=== PATIENT | female | born 1940 | race Caucasian/White ===

== ENCOUNTER 2016-07-14 15:44 | Emergency (ER) | payer MEDICARE, BC ==
[2016-04-06 12:45] VITALS: BMI 29.7
[~2016-07-14 15:44] MED LIST: ATELVIA35 MG PO; CARAFATE1 G PO; CENTRUM COMPLE1 EACH PO; GABAPENTIN100 MG PO; LIBRAX CAPSULE1 CAP PO; LIPITOR20 MG PO; NORCO 7.5/325 T1 TA1 PO; PRILOSEC20 MG PO; SYNTHROID100 MCG PO; TIMOPTIC 0.5 % O5 ML EACH EYE; TRICOR145 MG PO; VITAMIN D50000 UNIT PO; ZIAC 5-6.25 MG1 TAB PO; ZOLOFT50 MG PO
[2016-07-14 17:16] LABS: APPEARANCE CLEAR (CLEAR); BILIRUBIN NEGATIVE (NEGATIVE); COLOR YELLOW (YELLOW); GLUCOSE NEGATIVE (NEGATIVE); KETONE NEGATIVE (NEGATIVE); LEUKOCYTE ESTERASE 2+ (NEGATIVE); NITRITE NEGATIVE (NEGATIVE); PROTEIN NEGATIVE (NEGATIVE); SPECIFIC GRAVITY 1.015 (1.005-1.020); UROBILINOGEN NORMAL (NORMAL)
[2016-07-14 17:18] LABS: BACTERIA FEW /hpf (NONE SEEN); EPITHELIAL CELLS 0-5 /hpf (0-5); MUCUS <1+ /lpf (NONE SEEN)
== END 2016-07-14 17:48 | disposition home or self-care (01) ==
LOC: D.ER 15:44
PROVIDERS: Nurse Practitioner Acute Care
DX: N39.0 Urinary tract infection, site not specified (principal); E78.5 Hyperlipidemia, unspecified; I10 Essential (primary) hypertension; E03.9 Hypothyroidism, unspecified

== ENCOUNTER 2016-09-08 12:18 | Emergency (ER) | payer MEDICARE, BC ==
[2016-04-06 12:45] VITALS: BMI 29.7
[2016-09-08 13:08] LABS: APPEARANCE CLEAR (CLEAR); COLOR YELLOW (YELLOW)
[2016-09-08 13:09] LABS: BACTERIA FEW /hpf (NONE SEEN); BILIRUBIN NEGATIVE (NEGATIVE); EPITHELIAL CELLS 0-5 /hpf (0-5); GLUCOSE NEGATIVE (NEGATIVE); KETONE NEGATIVE (NEGATIVE); LEUKOCYTE ESTERASE 1+ (NEGATIVE); NITRITE NEGATIVE (NEGATIVE); PROTEIN NEGATIVE (NEGATIVE); RED CELLS - URINE 0-5 /hpf (0-5); SPECIFIC GRAVITY 1.015 (1.005-1.020); UROBILINOGEN NORMAL (NORMAL)
== END 2016-09-08 14:37 | disposition home or self-care (01) ==
LOC: D.ER 12:18
PROVIDERS: Emergency Medicine
DX: M54.5 Low back pain (principal); E78.5 Hyperlipidemia, unspecified; F17.200 Nicotine dependence, unspecified, uncomplicated

== ENCOUNTER 2016-11-06 12:26 | Inpatient (IN) | payer MEDICARE, BC ==
[2016-11-06 15:21] LABS: BASOPHILS 0.3 % (0-2); EOSINOPHILS 1.7 % (0-7); HEMATOCRIT 46.6 % (36.0-48.0); IMMATURE GRANULOCYTES 0.3 % (0-5); LYMPHOCYTES 26.7 % (15-50); MCH 30.5 pg (26.0-34.0); MCHC 32.2 g/dL (31.0-37.0); MCV 94.9 fL (80.0-100.0); MEAN PLATELET VOLUME 11.6 fL (7.4-10.4); MONOCYTES 6.2 % (2-11); NEUTROPHILS 64.8 % (40-80); PLATELET COUNT 183 10x3/uL (130-400); RBC 4.91 10x6/uL (4.00-5.40); RDW 15.7 % (11.5-14.5); WBC 7.1 10x3/uL (4.8-10.8)
[2016-11-06 15:27] LABS: APPEARANCE CLEAR (CLEAR); BILIRUBIN NEGATIVE (NEGATIVE); COLOR YELLOW (YELLOW); GLUCOSE NEGATIVE (NEGATIVE); KETONE NEGATIVE (NEGATIVE); LEUKOCYTE ESTERASE 1+ (NEGATIVE); NITRITE NEGATIVE (NEGATIVE); PROTEIN TRACE mg/dL (NEGATIVE); SPECIFIC GRAVITY 1.015 (1.005-1.020); UROBILINOGEN NORMAL (NORMAL)
[2016-11-06 15:35] LABS: BACTERIA NONE SEEN /hpf (NONE SEEN); EPITHELIAL CELLS 0-5 /hpf (0-5); RED CELLS - URINE 0-5 /hpf (0-5); WHITE CELLS - URINE 0-5 /hpf (0-5)
[2016-11-06 15:42] LABS: UDS - AMPHET NEGATIVE QUAL (NEGATIVE); UDS - BARB NEGATIVE QUAL (NEGATIVE); UDS - BENZO POSITIVE QUAL (NEGATIVE); UDS - COCAINE NEGATIVE QUAL (NEGATIVE); UDS - METH NEGATIVE QUAL (NEGATIVE); UDS - OPIATE POSITIVE QUAL (NEGATIVE); UDS - PCP NEGATIVE QUAL (NEGATIVE); UDS - THC NEGATIVE QUAL (NEGATIVE)
[2016-11-06 16:51] LABS: ALBUMIN 3.3 g/dL (3.4-5.0); ANION GAP 13.1 mmol/L (8-16); CALCIUM 9.7 mg/dL (8.5-10.1); CARBON DIOXIDE 28.5 mmol/L (21.0-32.0); CREATININE - SERUM 0.9 mg/dL (0.6-1.3); POTASSIUM - SERUM 3.6 mmol/L (3.5-5.1)
[2016-11-06 17:10] LABS: BILIRUBIN - TOTAL 0.91 mg/dL (0.2-1.3); PROTEIN - SERUM 7.4 g/dL (6.4-8.2)
[2016-11-06] MEDS ORDERED: VALIUM5 MG PO (18:43)
[2016-11-06 19:28] LABS: HEMOGLOBIN A1C 5.5 % (4.8-6.0)
[2016-11-06 19:30] VITALS: BP 154/88
[2016-11-06 19:37] LABS: CHOL - HDL RATIO 3.8 ratio (2.3-4.1); LDL-HDL RATIO 1.7 ratio (1.5-3.5); THYROID STIMULATING HORMONE 0.11 uIU/mL (0.36-3.74)
[2016-11-06 19:57] VITALS: BP 154/88
[2016-11-06 20:53] VITALS: BP 154/72
--- NOTE | 2016-11-06 22:58 | NUR ---
RECEIVED IN BEDROOM. ALERT ANDF ORIENTED. CALM AND COOPERATIVE WITH CARE AND ASSESSMENT. DENIES THOUGHT OF SELF HARM AT THIS TIME. STATES SHE WAS JUST UPSET AND IF HER FAMILY WOULD HAVE LEFT HER ALONE SHE WOULD HAVE BEEN FINE. ENCOURAGE TO EXPRESS NEEDS. RESTING EYES CLOSED. CONTINUE PLAN OF CARE
--- NOTE | 2016-11-07 07:12 | NUR ---
Recieved patient from ER via w/c accompanied by staff and family, patient had been crying. Patient was oriented X3, but denied S.I. According to family patient had threatened to shoot herself and locked herself in her room. The police were called and patient had threatened to shoot police. Patient denies this, saying she just wanted to be alone. However, nurse overheard patient admit to her son that she wanted to shoot herself. Patient is a DNR. Has had multiple surgeries in past, wears a brief and walks with cane assist. Patient has been given walker. She has special prescribed shoes that she has to wear at all times, due to previous heal injury. Patient was oriented to room and unit. Bed low, jennings within reach, rails up X2
--- NOTE | 2016-11-07 11:15 | NUR ---
Patient in room. She is calm and compliant and assists with self hygiene. Patient was trying to make her self throw up by sticking her fingers down her throat when nurse walked into the room. She denied this. Patient is denying suicidal ideation. She said it is against "God's plan" to commit suicide. Verbal contract made with nurse that she will not self harm. Patient is talkative with staff and fixated with her health and previous surgeries. Patient reoriented to current circumstances. Continue to monitor, continue plan of care.
--- NOTE | 2016-11-07 20:15 | NUR ---
RECEIVED IN HALLWAY OUTSIDE OF NURSES STATION. CALM AND COOPERATIVE WITH CARE AND ASESSMENTS. DENIES THOUGHTS OF SELF HARM. ENCOURAGE TO EXPRESS NEEDS AND FEELINGS. RESTING IN BED WITH EYES CLOSED AT THIS TIME. CONTINUE PLAN OF CARE
[2016-11-07 23:31] VITALS: BP 138/85
[2016-11-08 07:25] LABS: RAPID PLASMA REAGIN Non Reactive (Non Reactive)
--- NOTE | 2016-11-08 10:07 | NUR ---
Patient's glacoma eye drops has a conflict with allergy medication pharmacy called, talked with Francisca, was told if she takes the same drops at home, which she does according to patient, then she may continue to use them. will monitor for reaction
[2016-11-08 10:14] VITALS: BP 142/88
--- NOTE | 2016-11-08 10:43 | PSY ---
PATIENT NAME:TAY BUSTOS MEDICAL RECORD: [id number] : 44 LOCATION:[facility] ADMISSION DATE: 11/06/16 ACCOUNT: [id number] PSYCHIATRIC EVALUATION DATE OF EVALUATION: 11/07/16 Initial Psychiatric Workup IDENTIFYING DATA: This is the first Prison admission for this 76-year-old white female. HISTORY OF PRESENT ILLNESS: This patient was brought in by her family yesterday afternoon. The patient had been making suicidal threats. She had been threatening to shoot herself. Law enforcement was called to the scene. The patient threatened to assault law enforcement as well. She was brought to the Emergency Room and initially admitted on an involuntary basis, but the patient later agreed to sign in on a voluntary basis. The patient has a past history of major depressive disorder. She lives at home with her who has Parkinson disease and their 38-year-old son who provides caregiving. The patient has in the past been treated with Zoloft 150 mg daily, but the patient states that she took herself off this medicine because she thought that she was doing well. The patient has numerous medical problems and has a very strong somatic focus. She provides relatively little insight into her ongoing depression during the course of the interview. There is no evidence of psychosis. The patient has made very strong suicidal statements; although at the present time, she states that she would not carry through on it. PAST MEDICAL HISTORY: Significant for hypertension, hypothyroidism, diverticular disease, hyperlipidemia, GERD, vitamin D deficiency, chronic back pain, history of compression fracture of the lumbar spine, and also osteoporosis. MEDICATIONS: At the time of admission included Lipitor, Ziac, folic acid, TriCor, Neurontin, hydrocodone, levothyroxine, Prilosec, Carafate, vitamin D and Valium. ALLERGIES: THE PATIENT HAS NUMEROUS LISTED ALLERGIES INCLUDING CORTICOSTEROID, SULFONAMIDE ANTIBIOTICS, DIAMOX, FOSAMAX, AMOXICILLIN, CLAVULANIC ACID, DICLOFENAC, METHYLPREDNISOLONE, SULINDAC AND TIMOLOL. FAMILY HISTORY: Positive for a brother who is currently in penitentiary. He has a history of dementia. SOCIAL HISTORY: The patient is . She denies alcohol or drug use. She is a nonsmoker. She has 2 sons. REVIEW OF SYSTEMS: Noncontributory. MENTAL STATUS: On exam, the patient is extremely garrulous. She gives a long, rambling and concluded history focusing primarily on somatic problems. The patient tends to minimize the severity of her depression in spite of her suicidal statements. Mood is anxious. Affect is histrionic. Content of thought is noted for suicidal ideation in extreme somatic focus. No evidence of psychosis. Sensorium testing reveals the patient is oriented to person, place, month, and year. Remote, intermediate and short-term recall are relatively intact. DIAGNOSTIC IMPRESSION: AXIS I: Major depressive disorder -- recurrent with suicidal ideation. AXIS II: Cluster B personality traits. AXIS III: Hypertension, hypothyroidism, diverticular disease, hyperlipidemia, gastroesophageal reflux disease, vitamin D deficiency, chronic low back pain, history of compression fracture of the lumbar spine and osteoporosis. AXIS IV: Moderate. AXIS V: 36. PLAN: 1. The patient is admitted for medication revision as indicated. 2. Diet and activities as tolerated. 3. Daily supportive therapy. 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
[2016-11-08 11:16] LABS: VITAMIN D 25 HYDROXY 58.7 ng/mL (30.0-100.0)
[2016-11-08 12:16] LABS: APPEARANCE HAZY (CLEAR); BILIRUBIN NEGATIVE (NEGATIVE); COLOR DK YELLOW (YELLOW); GLUCOSE NEGATIVE (NEGATIVE); KETONE NEGATIVE (NEGATIVE); LEUKOCYTE ESTERASE 2+ (NEGATIVE); NITRITE NEGATIVE (NEGATIVE); PROTEIN NEGATIVE (NEGATIVE); SPECIFIC GRAVITY 1.015 (1.005-1.020); UROBILINOGEN NORMAL (NORMAL); WHITE CELLS - URINE 25-50 /hpf (0-5)
[2016-11-08 12:17] LABS: BACTERIA MODERATE /hpf (NONE SEEN); MUCUS <1+ /lpf (NONE SEEN); RED CELLS - URINE 0-5 /hpf (0-5)
--- NOTE | 2016-11-08 12:33 | NUR ---
Patient in dayroom and has spent most of the day socializing with peers. She has been calm and compliant with medication. Patient is pleasant however hyperverbal about personal ailments. She has been encouraged to express her needs. Patient denies suicidal ideation and still saying she just needed to be alone. Patient is orientated x4. Continue to monitor, continue plan of care.
[2016-11-08 19:29] VITALS: BP 124/75
--- NOTE | 2016-11-08 21:30 | NUR ---
RECEIVED IN BEDROOM. RESTING IN BED WITH EYES CLOSED. RESPONDS TO VOICE. CALM AND COOPERATIVE WITH CARE AND ASSESSMENTS. DENIES THOUGHTS OF SELF HARM. RESTING IN BED EYES CLOSED AT THIS TIME. CONTINUE PLAN OF CARE
[2016-11-09 08:30] VITALS: BP 118/68
--- NOTE | 2016-11-09 09:47 | PN ---
PATIENT:TAY BUSTOS MEDICAL RECORD: [id number] LOCATION:[facility] ADMISSION DATE: 11/06/16 PROGRESS NOTE DATE OF SERVICE: 11/08/2016 SUBJECTIVE: No new complaint. OBJECTIVE: The patient has been fairly cooperative over the last 24 hours. She is tolerating medications. She continues to show great deal focus on somatic concerns. On exam, mood is for the most part euthymic. Affect is shallow. Speech is garrulous. Content of thought focuses on somatic concerns. Sensorium shows no change. ASSESSMENT: No change in diagnosis. PLAN: 1. Continue current medications. 2. Continue supportive therapy. TRANSINT:[id number] Voice Confirmation ID: [id number] DOCUMENT ID: [id number] APRIL PETTY III, MD at 0947 CC: [id number] DICTATION DATE: 11/08/16 1208 2ND GRADE TEACHER: 11/08/16 2230 ADM IN [place] [id number] [place] [id number]
--- NOTE | 2016-11-09 10:00 | NUR ---
B) Received pt in dining room, alert, quiet mood, denies pain, no aggression or suicidal comments noted. I) Meds admin per orders, group therapy provided. R) Med compliant with no s/s adverse reaction noted, present for group activity. P) Cont plan of care including meds and group therapy.
[2016-11-09 20:16] VITALS: BP 109/74
--- NOTE | 2016-11-10 00:52 | NUR ---
B) recieved sitting in the day room alert and oriented to self and being in hospital, calm and cooperative, I) Administered perscribed medications, monitored for safety, R) Medication compliant, pleasant and friendly P) Continue plan of care.
--- NOTE | 2016-11-10 10:35 | PN ---
PATIENT:TAY BUSTOS MEDICAL RECORD: [id number] LOCATION:[facility] ADMISSION DATE: 11/06/16 PROGRESS NOTE DATE OF SERVICE: 11/09/2016 SUBJECTIVE: No new complaint. OBJECTIVE: The patient is overall better. She is tolerating medication without difficulty. On exam, mood is euthymic, affect is pleasant. Speech is fluent. Content of thought is negative for psychosis or suicidality. Sensorium is clear. ASSESSMENT: No change in diagnosis. PLAN: 1. Maintain current medications. 2. Continue supportive therapy. TRANSINT:[id number] Voice Confirmation ID: [id number] DOCUMENT ID: [id number] APRIL PETTY III, MD at 1035 CC: [id number] DICTATION DATE: 11/09/16 1051 MERCHANDISE COLLECTOR: 11/09/162048 ADM IN [facility] [address] [place] [address]
[2016-11-10 11:00] VITALS: BP 161/91
[2016-11-10] MEDS ORDERED: LEXAPRO10 MG PO (12:08)
[2016-11-10] MEDS ORDERED: SYNTHROID75 MCG PO (12:09)
[2016-11-10] MEDS ORDERED: SENOKOT-S TABLE1 TAB PO (12:09)
--- NOTE | 2016-11-10 20:00 | NUR ---
RECEIVED IN DAYROOM SITTING IN CHAIR. ALERT AND PLEASANT MOOD. CALM AND COOPERATIVE WITH CARE AND ASSESSMENT. REDIRECT AND REORIENT NEEDED. SEE ASSESSMENT FLOW SHEET. CONTINUE PLAN OF CARE.
[2016-11-10 21:12] VITALS: BP 125/71
--- NOTE | 2016-11-11 02:50 | NUR ---
TYLENOL 650 MG PO GIVEN FOR BACK AND RIGHT ARM PAIN.
--- NOTE | 2016-11-11 08:46 | NUR ---
FAXED D/C ORDER TO DR. KEBEDE AND KONSTANTIN, CALLED [facility]. PATIENT SIGNED D/C PAPERWORK. WILL CONTINUE TO WORK ON D/C.
[2016-11-11 09:35] VITALS: BP 104/68
--- NOTE | 2016-11-11 13:04 | NUR ---
PATIENT'S FAMILY HERE TO TAKE HER HOME. PATIENT CHANGING INTO HER OWN CLOTHES.
--- NOTE | 2016-11-11 13:23 | NUR ---
PATIENT D/C'D FROM [facility], ASSISTED TO THE CAR WITH FAMILY. PROVIDED PATIENT THE APPT WITH HER MD AND GAVE HER MED LIST.
--- NOTE | 2016-11-12 10:07 | NUR ---
LATE ENTRY FROM 11/09. PT'S SON, MARGARETTE, PARTICIPATED IN EDUCATIONAL GROUP. SW DISCUSSED DISCHARGE PLANS AND REFERRED PT TO OUTPATIENT COUNSELING AT [facility] AND [facility]. PT AND SON VERBALIZED UNDERSTANDING OF DISCHARGE PLANS AND LEVEL OF CARE THAT NEEDS TO BE CONTINUED.
--- NOTE | 2016-11-14 09:54 | PN ---
PATIENT:TAY BUSTOS MEDICAL RECORD: [id number] LOCATION:[facility] ADMISSION DATE: 11/06/16 PROGRESS NOTE DATE OF SERVICE: 11/11/2016 SUBJECTIVE: The patient's case was discussed with staff. She has no new complaint. OBJECTIVE: The patient is in good behavioral control with limited insight about her condition. She tolerates her medicines well. ASSESSMENT: No change in diagnoses. PLAN: The patient is not acutely dangerous. She is scheduled for discharge today and I do not see any reason why that could not or should not occur. Followup will be with her primary care physician. I do not see the patient as acutely dangerous at this moment. TRANSINT:[id number] Voice Confirmation ID: [id number] DOCUMENT ID: [id number] PAUL MORALES MD at 0954 CC: [id number] DICTATION DATE: 11/11/16 1254 SUPERVISOR BLOOMING MILL: 11/12/16 0044 DIS IN 11/11/16 [facility] [address] [place] [address]
--- NOTE | 2016-11-14 09:57 | PN ---
PATIENT:TAY BUSTOS MEDICAL RECORD: [id number] LOCATION:[facility] ADMISSION DATE: 11/06/16 PROGRESS NOTE DATE OF SERVICE: 11/10/2016 SUBJECTIVE: No new complaint. OBJECTIVE: The patient has shown good tolerance of medication. No further suicidal statements have been made. Discharge plans were discussed with the patient including the need for followup through [facility] in [place]. On exam, mood more or less euthymic. Affect somewhat histrionic. Speech is somewhat hyperverbal. Content of thought focuses primarily on somatic concerns. Sensorium shows no change. ASSESSMENT: No change in diagnosis. PLAN: 1. Continue all current medications. 2. Anticipate discharge tomorrow. TRANSINT:[id number] Voice Confirmation ID: [id number] DOCUMENT ID: [id number] ARPIL PETTY III, MD at 0957 CC: [id number] DICTATION DATE: 11/10/16 1211 LIFE SKILLS COORDINATOR: 11/11/16 0045 DIS IN 11/11/16 [place] [id number] [place] [address]
== END 2016-11-11 13:20 | disposition home or self-care (01) | DRG 885 ==
LOC: D.ER 12:26 → D.PSYCH 14:28
PROVIDERS: Nurse Practitioner Acute Care; ADMIT Psychiatry & Neurology Psychiatry
DX: F33.9 Major depressive disorder, recurrent, unspecified (principal); R45.851 Suicidal ideations; K21.9 Gastro-esophageal reflux disease without esophagitis; F41.9 Anxiety disorder, unspecified; I10 Essential (primary) hypertension; E03.9 Hypothyroidism, unspecified; E78.5 Hyperlipidemia, unspecified; K57.90 Diverticulosis of intestine, part unspecified, without perforation or abscess without bleeding; E55.9 Vitamin D deficiency, unspecified; M81.0 Age-related osteoporosis without current pathological fracture; R51 Headache